=== PATIENT | male | born 1975 | race Caucasian/White ===

== ENCOUNTER 2017-05-29 17:23 | Emergency (ER) | payer OTHER ==
[~2017-05-29] VITALS: Ht 175.3 cm; Wt 81.6 kg
--- OUTSIDE RECORDS SUMMARY | 2017-05-29 18:14 | External Medical Summary Rpt | CCD ---
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 M46.46 Discitis, unspecified , lumbar region M54.17 Radiculopat hy, lumbosacral region M54.41 Lumbago with sciatica, right side M54.42 Lumbago with sciatica, left side N39.498 Other specified urinary incontinenc e R03.0 Elevated blood-press ure reading, without diagnosis of hypertensio n R10.12 Left upper quadrant pain R79.82 Elevated C-reactive protein (CRP) S39.92XS Unspecified injury of lower back, sequela Z74.09 Other reduced mobility Results Labs Lab Lab Date Result Refere Interp Status Commen Order Detail nces retati t Range on TOXICOLOGY SCREEN, URINE (04-06-2017 07:56) OPIATES 10-13-2 Negativ Negativ complet -URINE 017 e e ed SCREEN 07:56 COCAINE 10-13-2 Negativ Negativ complet -URINE 017 e e ed SCREEN 07:56 CANNABI 10-13-2 Negativ Negativ complet NOIDS-U 017 e e ed RINE 07:56 SCREEN BENZODI 10-13-2 Negativ Negativ complet AZEPINE 017 e ng/mL e ed S-URINE 07:56 SCREEN BARBITU 10-13-2 Negativ Negativ complet RATES-U 017 e ng/mL e ed RINE 07:56 SCREEN AMPHETA 10-13-2 Negativ Negativ complet MINES-U 017 e e ed RINE 07:56 [arb'U] SCRN URINALYSIS (04-06-2017 07:56) LEUKOCY -13-2 Negativ Negativ complet TE 017 e e ed ESTERAS 07:56 E-URINE UROBILI 04-06-2 Normal Normal complet NOGEN-U 017 {Ehrlic ed RINE 07:56 hU}/dL OCCULT -13-2 Negativ Negativ complet BLOOD-U 017 e e ed RINE 07:56 BILIRUB -13-2 Negativ Negativ complet IN-URIN 017 e mg/dL e ed E 07:56 KETONE- -13-2 Negativ Negativ complet URINE 017 e mg/dL e ed 07:56 GLUCOSE -13-2 Negativ Negativ complet -URINE 017 e mg/dL e ed 07:56 PROTEIN -13-2 Negativ Negativ complet -URINE 017 e mg/dL e ed 07:56 PH-URIN 13-2 7.0 5.0-9.0 complet E 017 ed 07:56 SPECIFI 13-2 1.008 1.005-1 complet C 017 [arb'U] .030 ed GRAVITY 07:56 URINE COLOR-U 04-06-2 Yellow complet RINE 017 ed 07:56 Drugs identified in Urine by Screen method (04-06-2017 07:56) Benzodi -13-2 Negativ Negativ complet azepine 017 e e ed s 07:56 [Presen ce] in Urine Opiates --2 Negativ Negativ complet 017 e e ed [Presen 07:56 ce] in Urine by Screen method Drugs identified in Urine by Screen method (04-06-2017 07:56) Ampheta 10-13-2 Negativ Negativ complet mines 017 e e ed [Presen 07:56 ce] in Urine by Screen method Barbitu 10-13-2 Negativ Negativ complet rates 017 e e ed [Presen 07:56 ce] in Urine Benzodi 10-13-2 PENDING Negativ complet azepine 017 e ed s 07:56 [Presen ce] in Urine Cannabi -13-2 Negativ Negativ complet noids 017 e e ed [Presen 07:56 ce] in Urine by Screen method Cocaine 10-13-2 Negativ Negativ complet 017 e e ed [Presen 07:56 ce] in Urine by Screen method Opiates 04-06-2 PENDING Negativ complet 017 e ed [Presen 07:56 ce] in Urine by Screen method Urinalysis macro (dipstick) panel in Urine (04-06-2017 07:56) Color 04-06- Yellow complet of 017 ed Urine 07:56 CLARITY Clear complet -URINE 017 ed 07:56 Specifi 1.008 1.005 complet c 017 [arb'U] [arb'U] ed gravity 07:56 - of 1.030 Urine [arb'U] by Automat ed test strip pH of 7.0 5.0 - complet Urine 017 9.0 ed by 07:56 Automat ed test strip Protein 04-06-2 Negativ Negativ complet 017 e e ed [Mass/v 07:56 olume] in unspeci fied time Urine Glucose 04-06-2 Negativ Negativ complet 017 e e ed [Mass/v 07:56 olume] in Urine by Automat ed test strip Ketones 04-06-2 Negativ Negativ complet 017 e e ed [Mass/v 07:56 olume] in Urine by Automat ed test strip Bilirub 04-06-2 Negativ Negativ complet in 017 e e ed [Mass/v 07:56 olume] in Urine by Automat ed test strip Hemoglo 04-06-2 Negativ Negativ complet bin 017 e e ed [Presen 07:56 ce] in Urine by Automat ed test strip NITRITE 04-06-2 Negativ Negativ complet -URINE 017 e e ed 07:56 Urobili 2 Normal Normal complet nogen 017 ed [Mass/v 07:56 olume] in Urine by Automat ed test strip Leukocy --2 Negativ Negativ complet te 017 e e ed esteras 07:56 e [Presen ce] in Urine by Automat ed test strip SOURCE- Urine complet URINE 017 Midstre ed 07:56 am REFLEX Macrosc complet MICROSC 017 opic ed OPIC? 07:56 only perform ed ERYTHROCYTE SEDIMENTATION RATE (04-06-2017 06:39) ERYTHRO 10-13-2 6 mm/Hr 0-15 complet CYTE 017 ed SEDIMEN 06:39 TATION RATE ETHANOL (04-06-2017 06:39) ETHYLAL --2 < 10 0-26 complet COHOL 017 mg/dL ed 06:39 CBC W/DIFF (04-06-2017 06:39) IMMATUR 10-13-2 0.03 <1 complet E 017 10*3/uL ed GRANULO 06:39 CYTE ABS BASOPHI 04-06-2 0.03 0.0-0.2 complet L ABS 017 10*3/uL ed 06:39 EOS-ABS 04-06-2 0.16 0.0-0.8 complet OLUTE 017 10*3/uL ed 06:39 MONOCYT 04-06-2 0.93 0.0-1.7 complet E 017 10*3/uL ed ABSOLUT 06:39 E LYMPHOC 04-06-2 2.84 0.7-5.5 complet YTE-ABS 017 10*3/uL ed OLUTE 06:39 NEUTROP 04-06-2 5.31 2.0-8.8 complet HIL ABS 017 10*3/uL ed 06:39 NUCLEAT 04-06-2 0 0 complet ED RBC 017 /100{WB ed % 06:39 C} IMMATUR 04-06-2 0.3 % 0 complet E 017 ed GRANULO 06:39 CYTE% BASO% 04-06-2 0.3 % 0-2 complet 017 ed 06:39 EOSINOP 04-06-2 1.7 % 0-7 complet HIL% 017 ed 06:39 MONOCYT 04-06-2 10.0 % 0-15 complet E % 017 ed 06:39 LYMPHOC 04-06-2 30.5 % 15-50 complet YTE % 017 ed 06:39 NEUTROP 04-06-2 57.2 % 45-80 complet HILS % 017 ed 06:39 MEAN 04-06-2 10.5 fL 6.7-10. complet PLATELE 017 8 ed T 06:39 VOLUME PLATELE 04-06-2 351 140-440 complet T COUNT 017 10*3/uL ed 06:39 RED --2 12.6 % 12.0-16 complet CELL 017 .8 ed DISTRIB 06:39 UTION WIDTH-C V MEAN 10-13-2 33.5 31.0-37 complet CORPUSC 017 g/dL .0 ed ULAR 06:39 HGB CONC MEAN 29.9 pg 26.0-34 complet CORPUSC 017 .0 ed ULAR 06:39 HEMOGLO BIN MEAN 89.2 fL 80.0-10 complet CORPUSC 017 0.0 ed ULAR 06:39 VOLUME HEMATOC 43.6 % 41.0-53 complet RIT 017 .0 ed 06:39 HEMOGLO 14.6 13.5-17 complet BIN 017 g/dL .5 ed 06:39 RED 4.89 4.5-5.9 complet BLOOD 017 10*6/uL ed COUNT 06:39 WHITE 9.30 4.5-11. complet BLOOD 017 10*3/uL 0 ed COUNT 06:39 Erythrocyte sedimentation rate (04-06-2017 06:39) Erythro 6 mm/Hr 0mm/H complet cyte 017 r - ed sedimen 06:39 15mm/ tation Hr rate CBC W Auto Differential panel in Blood (04-06-2017 06:39) Leukocy 9.30 4.510 complet cheli 017 10*3/uL *3/uL - ed [#/volu 06:39 me] in 11.01 Blood 0*3/uL by Automat ed count Erythro 4.89 4.510 complet cytes 017 10*6/uL *6/uL - ed [#/volu 06:39 me] in 5.910 Blood *6/uL by Automat ed count Hemoglo 14.6 13.5g complet bin 017 g/dL /dL - ed [Mass/v 06:39 17.5g olume] /dL in Blood Hematoc 43.6 % 41.0% complet rit 017 - ed [Volume 06:39 53.0% Fractio n] of Blood by Automat ed count Erythro 89.2 fL 80.0f complet cyte 017 L - ed mean 06:39 100.0 corpusc fL ular volume [Entiti c volume] by Automat ed count Erythro 29.9 pg 26.0p complet cyte 017 g - ed mean 06:39 34.0p corpusc g ular hemoglo bin [Entiti c mass] by Automat ed count Erythro 33.5 31.0g complet cyte 017 g/dL /dL - ed mean 06:39 37.0g corpusc /dL ular hemoglo bin concent ration [Mass/v olume] by Automat ed count Erythro 12.6 % 12.0% complet cyte 017 - ed distrib 06:39 16.8% ution width [Ratio] by Automat ed count Platele [phone] [id number] complet ts 017 10*3/uL *3/uL - ed [#/volu 06:39 me] in [id number] Blood *3/uL by Automat ed count Platele 10.5 fL 6.7fL complet t mean 017 - ed volume 06:39 10.8f [Entiti L c volume] in Blood by Automat ed count DIFF [facility]osp[facility] complet TYPE 017 l CBC ed 06:39 w/AutoD iff Neutrop 57.2 % 45% - complet hils/10 017 80% ed 0 06:39 leukocy cheli in Blood by Automat ed count Lymphoc 30.5 % 15% - complet ytes/10 017 50% ed 0 06:39 leukocy cheli in Blood by Automat ed count Monocyt 10.0 % 0% - complet es/100 017 15% ed leukocy 06:39 cheli in Blood by Automat ed count Eosinop 1.7 % 0% - complet hils/10 017 7% ed 0 06:39 leukocy cheli in Blood by Automat ed count Basophi 0.3 % 0% - complet ls/100 017 2% ed leukocy 06:39 cheli in Blood by Automat ed count IMMATUR 0.3 % 0 High complet E 017 ed GRANULO 06:39 CYTE% Nucleat 0 0 complet ed 017 /100{WB ed erythro 06:39 C} cytes/1 00 leukocy cheli [Ratio] in Blood by Automat ed count Neutrop 5.31 2.010 complet hils 017 10*3/uL *3/uL - ed [#/volu 06:39 me] in 8.810 Blood *3/uL by Automat ed count Lymphoc 2.84 0.710 complet ytes 017 10*3/uL *3/uL - ed [#/volu 06:39 me] in 5.510 Blood *3/uL by Automat ed count Monocyt 0.93 0.010 complet es 017 10*3/uL *3/uL - ed [#/volu 06:39 me] in 1.710 Blood *3/uL by Automat ed count Eosinop 0.16 0.010 complet hils 017 10*3/uL *3/uL - ed [#/volu 06:39 me] in 0.810 Blood *3/uL by Automat ed count Basophi 0.03 0.010 complet ls 017 10*3/uL *3/uL - ed [#/volu 06:39 me] in 0.210 Blood *3/uL by Automat ed count IMMATUR 0.03 <1 complet E 017 10*3/uL ed GRANULO 06:39 CYTE ABS ESR Bld Qn (03-08-2017 17:17) ESR Bld 25 0-15 complet Qn 017 mm/hr ed 17:17 CRP SerPl-mCnc (03-08-2017 17:17) CRP 0.70 0.00-1. complet SerPl-m 017 mg/dL 00 ed Cnc 17:17 CK SerPl-cCnc (03-08-2017 17:17) CK 73 U/L 26-174 complet SerPl-c 017 ed Cnc 17:17 Comp Metab 1998 Pnl SerPl (03-08-2017 17:17) Anion 13.0 3.0-11. complet Gap3 017 mmol/L 0 ed SerPl-s 17:17 Cnc BUN/Cre 13.3 7.0-25. complet at 017 0 ed SerPl 17:17 Albumin 1.2 1.5-2.5 complet /Glob 017 g/dL ed SerPl 17:17 Globuli 3.7 complet n Ur 017 gm/dL ed Elph-mC 17:17 nc GFR/BSA 147 >60 complet .pred 017 mL/min/ ed SerPl 17:17 1.73 MDRD-Ar VRat Bilirub 0.4 0.3-1.2 complet 017 mg/dL ed SerPl-m 17:17 Cnc ALP 120 U/L 25-100 complet SerPl-c 017 ed Cnc 17:17 AST 118 U/L 0-33 complet SerPl-c 017 ed Cnc 17:17 ALT 127 U/L 7-40 complet SerPl w 017 ed 17:17 P-5'-P- cCnc Albumin 4.30 3.20-4. complet 017 g/dL 80 ed SerPl-m 17:17 Cnc Prot 8.0 5.7-8.2 complet SerPl-m 017 g/dL ed Cnc 17:17 Calcium 9.0 8.7-10. complet 017 mg/dL 4 ed XXX-sCn 17:17 c CO2 25.0 20.0-31 complet SerPl-s 017 mmol/L .0 ed Cnc 17:17 Chlorid 103 99-109 complet e 017 mmol/L ed SerPl-s 17:17 Cnc Potassi 3.9 3.5-5.5 complet um 017 mmol/L ed Bld-sCn 17:17 c Sodium 141 132-146 complet Bld-sCn 017 mmol/L ed c 17:17 Creat 0.60 0.60-1. complet Bld-mCn 017 mg/dL 30 ed c 17:17 BUN 8 mg/dL 9-23 complet Bld-mCn 017 ed c 17:17 Glucose 92 70-100 complet 017 mg/dL ed Bld-mCn 17:17 c CBC W Diff pnl,unspecified Bld (03-08-2017 17:17) Imm 09-14-2 0.02 0.00-0. complet Granulo 017 10*3/mm 03 ed cytes # 17:17 3 Bld Basophi 03-08-2 0.03 0.00-0. complet ls # 017 10*3/mm 20 ed Bld 17:17 3 Auto Eosinop 03-08-2 0.04 0.00-0. complet hil # 017 10*3/mm 30 ed Bld 17:17 3 Auto Monocyt 03-08-2 0.79 0.00-1. complet es # 017 10*3/mm 00 ed Bld 17:17 3 Auto Lymphoc 03-08-2 2.03 0.60-4. complet ytes # 017 10*3/mm 80 ed Bld 17:17 3 Auto Neutrop 03-08-2 5.72 1.50-8. complet hils # 017 10*3/mm 30 ed Bld 17:17 3 Auto Imm 03-08-2 0.2 % 0.0-0.6 complet Granulo 017 ed cytes/l 17:17 euk NFr Bld Basophi 03-08-2 0.3 % 0.0-1.0 complet ls/leuk 017 ed NFr 17:17 Bld Auto Eosinop 03-08-2 0.5 % 0.0-3.0 complet hil/priscilla 017 ed k NFr 17:17 Bld Auto Monocyt 03-08-2 9.2 % 0.0-12. complet es/leuk 017 0 ed NFr 17:17 Bld Auto Lymphoc 03-08-2 23.5 % 24.0-44 complet ytes/le 017 .0 ed uk NFr 17:17 Bld Auto Neutrop 03-08-2 66.3 % 41.0-71 complet hils/le 017 .0 ed uk NFr 17:17 Bld Auto Platele 03-08-2 305 150-450 complet t # Bld 017 10*3/mm ed Auto 17:17 3 PMV Bld 03-08-2 9.6 fL 6.0-12. complet Auto 017 0 ed 17:17 RDW RBC 03-08-2 38.9 fl 37.0-54 complet Auto 017 .0 ed 17:17 RDW RBC 03-08-2 12.2 % 11.3-14 complet 017 .5 ed Auto-Rt 17:17 o MCHC 34.0 32.0-36 complet RBC 017 g/dL .0 ed Auto-mC 17:17 nc MCH RBC 29.8 pg 27.0-31 complet Qn 017 .0 ed Auto 17:17 MCV RBC 87.7 fL 80.0-99 complet Auto 017 .0 ed 17:17 Hct VFr 44.4 % 38.9-50 complet Bld 017 .9 ed Auto 17:17 Hgb 15.1 13.1-17 complet Bld-mCn 017 g/dL .5 ed c 17:17 RBC # 5.06 4.20-5. complet Bld 017 10*6/mm 76 ed Auto 17:17 3 WBC 8.63 3.50-10 complet nRBC 017 10*3/mm .80 ed cor # 17:17 3 Bld CRP SerPl-mCnc (03-02-2017 16:57) CRP 0.91 0.00-1. complet SerPl-m 017 mg/dL 00 ed Cnc 16:57 CK SerPl-cCnc (03-02-2017 16:57) CK 62 U/L 26-174 complet SerPl-c 017 ed Cnc 16:57 Comp Metab 1998 Pnl SerPl (03-02-2017 16:57) Anion 8.0 3.0-11. complet Gap3 017 mmol/L 0 ed SerPl-s 16:57 Cnc BUN/Cre 15.0 7.0-25. complet at 017 0 ed SerPl 16:57 Albumin 1.2 1.5-2.5 complet /Glob 017 g/dL ed SerPl 16:57 Globuli 3.3 complet n Ur 017 gm/dL ed Elph-mC 16:57 nc GFR/BSA 147 >60 complet .pred 017 mL/min/ ed SerPl 16:57 1.73 MDRD-Ar VRat Bilirub 0.3 0.3-1.2 complet 017 mg/dL ed SerPl-m 16:57 Cnc ALP 106 U/L 25-100 complet SerPl-c 017 ed Cnc 16:57 AST 08 100 U/L 0-33 complet SerPl-c 017 ed Cnc 16:57 ALT 104 U/L 7-40 complet SerPl w 017 ed 16:57 P-5'-P- cCnc Albumin 4.10 3.20-4. complet 017 g/dL 80 ed SerPl-m 16:57 Cnc Prot 7.4 5.7-8.2 complet SerPl-m 017 g/dL ed Cnc 16:57 Calcium 08 9.4 8.7-10. complet 017 mg/dL 4 ed XXX-sCn 16:57 c CO2 28.0 20.0-31 complet SerPl-s 017 mmol/L .0 ed Cnc 16:57 Chlorid 101 99-109 complet e 017 mmol/L ed SerPl-s 16:57 Cnc Potassi 3.9 3.5-5.5 complet um 017 mmol/L ed Bld-sCn 16:57 c Sodium 137 132-146 complet Bld-sCn 017 mmol/L ed c 16:57 Creat 0.60 0.60-1. complet Bld-mCn 017 mg/dL 30 ed c 16:57 BUN 9 mg/dL 9-23 complet Bld-mCn 017 ed c 16:57 Glucose 111 70-100 complet 017 mg/dL ed Bld-mCn 16:57 c CBC (hemogram) Bld Auto (03-02-2017 16:57) Platele 355 150-450 complet t # Bld 017 10*3/mm ed Auto 16:57 3 PMV Bld 9.0 fL 6.0-12. complet Auto 017 0 ed 16:57 RDW RBC 37.5 fl 37.0-54 complet Auto 017 .0 ed 16:57 RDW RBC 11.7 % 11.3-14 complet 017 .5 ed Auto-Rt 16:57 o WBC 09-08-2 7.47 3.50-10 complet nRBC 017 10*3/mm .80 ed cor # 16:57 3 Bld MCHC 03-02-2 34.2 32.0-36 complet RBC 017 g/dL .0 ed Auto-mC 16:57 nc MCH RBC 03-02-2 30.1 pg 27.0-31 complet Qn 017 .0 ed Auto 16:57 MCV RBC 03-02-2 88.0 fL 80.0-99 complet Auto 017 .0 ed 16:57 Hct VFr 03-02-2 42.4 % 38.9-50 complet Bld 017 .9 ed Auto 16:57 Hgb 08-2 14.5 13.1-17 complet Bld-mCn 017 g/dL .5 ed c 16:57 RBC # 08-2 4.82 4.20-5. complet Bld 017 10*6/mm 76 ed Auto 16:57 3 CBC (hemogram) Bld Auto (02-23-2017 15:44) WBC 02-23-2 12.14 3.50-10 complet nRBC 017 10*3/mm .80 ed cor # 15:44 3 Bld Platele 405 150-450 complet t # Bld 017 10*3/mm ed Auto 15:44 3 PMV Bld 9.4 fL 6.0-12. complet Auto 017 0 ed 15:44 RDW RBC 02-23- 39.3 fl 37.0-54 complet Auto 017 .0 ed 15:44 RDW RBC 02-23-2 12.2 % 11.3-14 complet 017 .5 ed Auto-Rt 15:44 o MCHC 02-23-2 34.0 32.0-36 complet RBC 017 g/dL .0 ed Auto-mC 15:44 nc MCH RBC 02-23-2 30.3 pg 27.0-31 complet Qn 017 .0 ed Auto 15:44 MCV RBC 02-23-2 89.2 fL 80.0-99 complet Auto 017 .0 ed 15:44 Hct VFr 02-23-2 44.7 % 38.9-50 complet Bld 017 .9 ed Auto 15:44 Hgb 02-23-2 15.2 13.1-17 complet Bld-mCn 017 g/dL .5 ed c 15:44 RBC # 5.01 4.20-5. complet Bld 017 10*6/mm 76 ed Auto 15:44 3 CRP SerPl-mCnc (02-23-2017 15:43) CRP 2.32 0.00-1. complet SerPl-m 017 mg/dL 00 ed Cnc 15:43 CK SerPl-cCnc (02-23-2017 15:43) CK 41 U/L 26-174 complet SerPl-c 017 ed Cnc 15:43 Comp Metab 1998 Pnl SerPl (02-23-2017 15:43) Anion 4.0 3.0-11. complet Gap3 017 mmol/L 0 ed SerPl-s 15:43 Cnc BUN/Cre 21.7 7.0-25. complet at 017 0 ed SerPl 15:43 Albumin 1.2 1.5-2.5 complet /Glob 017 g/dL ed SerPl 15:43 Globuli 3.5 complet n Ur 017 gm/dL ed Elph-mC 15:43 nc GFR/BSA 147 >60 complet .pred 017 mL/min/ ed SerPl 15:43 1.73 MDRD-Ar VRat Bilirub 0.3 0.3-1.2 complet 017 mg/dL ed SerPl-m 15:43 Cnc ALP 102 U/L 25-100 complet SerPl-c 017 ed Cnc 15:43 AST 96 U/L 0-33 complet SerPl-c 017 ed Cnc 15:43 ALT 163 U/L 7-40 complet SerPl w 017 ed 15:43 P-5'-P- cCnc Albumin 4.30 3.20-4. complet 017 g/dL 80 ed SerPl-m 15:43 Cnc Prot 7.8 5.7-8.2 complet SerPl-m 017 g/dL ed Cnc 15:43 Calcium 9.5 8.7-10. complet 017 mg/dL 4 ed XXX-sCn 15:43 c CO2 25.0 20.0-31 complet SerPl-s 017 mmol/L .0 ed Cnc 15:43 Chlorid 102 99-109 complet e 017 mmol/L ed SerPl-s 15:43 Cnc Potassi 4.6 3.5-5.5 complet um 017 mmol/L ed Bld-sCn 15:43 c Sodium 131 132-146 complet Bld-sCn 017 mmol/L ed c 15:43 Creat 0.60 0.60-1. complet Bld-mCn 017 mg/dL 30 ed c 15:43 BUN 13 9-23 complet Bld-mCn 017 mg/dL ed c 15:43 Glucose 99 70-100 complet 017 mg/dL ed Bld-mCn 15:43 c Comp Metab 1998 Pnl SerPl (02-22-2017 05:42) Anion 6.0 3.0-11. complet Gap3 017 mmol/L 0 ed SerPl-s 05:42 Cnc BUN/Cre 24.3 7.0-25. complet at 017 0 ed SerPl 05:42 Albumin 1.1 1.5-2.5 complet /Glob 017 g/dL ed SerPl 05:42 Globuli 3.4 complet n Ur 017 gm/dL ed Elph-mC 05:42 nc GFR/BSA 123 >60 complet .pred 017 mL/min/ ed SerPl 05:42 1.73 MDRD-Ar VRat Bilirub 0.4 0.3-1.2 complet 017 mg/dL ed SerPl-m 05:42 Cnc ALP 86 U/L 25-100 complet SerPl-c 017 ed Cnc 05:42 AST 71 U/L 0-33 complet SerPl-c 017 ed Cnc 05:42 ALT 142 U/L 7-40 complet SerPl w 017 ed 05:42 P-5'-P- cCnc Albumin 3.80 3.20-4. complet 017 g/dL 80 ed SerPl-m 05:42 Cnc Prot 7.2 5.7-8.2 complet SerPl-m 017 g/dL ed Cnc 05:42 Calcium 9.2 8.7-10. complet 017 mg/dL 4 ed XXX-sCn 05:42 c CO2 29.0 20.0-31 complet SerPl-s 017 mmol/L .0 ed Cnc 05:42 Chlorid 95 99-109 complet e 017 mmol/L ed SerPl-s 05:42 Cnc Potassi 4.0 3.5-5.5 complet um 017 mmol/L ed Bld-sCn 05:42 c Sodium 130 132-146 complet Bld-sCn 017 mmol/L ed c 05:42 Creat 0.70 0.60-1. complet Bld-mCn 017 mg/dL 30 ed c 05:42 BUN 17 9-23 complet Bld-mCn 017 mg/dL ed c 05:42 Glucose 95 70-100 complet 017 mg/dL ed Bld-mCn 05:42 c Ammonia Plas-sCnc (02-21-2017 15:22) Ammonia 35 19-60 complet 017 umol/L ed Bld-sCn 15:22 c Bas Metab 2000 Pnl SerPl (02-21-2017 05:33) Anion 9.0 3.0-11. complet Gap3 017 mmol/L 0 ed SerPl-s 05:33 Cnc BUN/Cre 21.4 7.0-25. complet at 017 0 ed SerPl 05:33 GFR/BSA 123 >60 complet .pred 017 mL/min/ ed SerPl 05:33 1.73 MDRD-Ar VRat Calcium 9.6 8.7-10. complet 017 mg/dL 4 ed XXX-sCn 05:33 c CO2 25.0 20.0-31 complet SerPl-s 017 mmol/L .0 ed Cnc 05:33 Chlorid 99 99-109 complet e 017 mmol/L ed SerPl-s 05:33 Cnc Potassi 4.3 3.5-5.5 complet um 017 mmol/L ed Bld-sCn 05:33 c Sodium 133 132-146 complet Bld-sCn 017 mmol/L ed c 05:33 Creat 0.70 0.60-1. complet Bld-mCn 017 mg/dL 30 ed c 05:33 BUN 15 9-23 complet Bld-mCn 017 mg/dL ed c 05:33 Glucose 150 70-100 complet 017 mg/dL ed Bld-mCn 05:33 c CK SerPl-cCnc (02-21-2017 05:33) CK 11 U/L 26-174 complet SerPl-c 017 ed Cnc 05:33 CK SerPl-cCnc (02-20-2017 04:51) CK 31 U/L 26-174 complet SerPl-c 017 ed Cnc 04:51 Comp Metab 1998 Pnl SerPl (02-20-2017 04:51) Anion 7.0 3.0-11. complet Gap3 017 mmol/L 0 ed SerPl-s 04:51 Cnc BUN/Cre 20.0 7.0-25. complet at 017 0 ed SerPl 04:51 Albumin 1.1 1.5-2.5 complet /Glob 017 g/dL ed SerPl 04:51 Globuli 3.6 complet n Ur 017 gm/dL ed Elph-mC 04:51 nc GFR/BSA 147 >60 complet .pred 017 mL/min/ ed SerPl 04:51 1.73 MDRD-Ar VRat Bilirub 0.4 0.3-1.2 complet 017 mg/dL ed SerPl-m 04:51 Cnc ALP 92 U/L 25-100 complet SerPl-c 017 ed Cnc 04:51 AST 99 U/L 0-33 complet SerPl-c 017 ed Cnc 04:51 ALT 185 U/L 7-40 complet SerPl w 017 ed 04:51 P-5'-P- cCnc Albumin 3.90 3.20-4. complet 017 g/dL 80 ed SerPl-m 04:51 Cnc Prot 02-20-2 7.5 5.7-8.2 complet SerPl-m 017 g/dL ed Cnc 04:51 Calcium 02-20-2 9.7 8.7-10. complet 017 mg/dL 4 ed XXX-sCn 04:51 c CO2 02-20-2 28.0 20.0-31 complet SerPl-s 017 mmol/L .0 ed Cnc 04:51 Chlorid 02-20-2 95 99-109 complet e 017 mmol/L ed SerPl-s 04:51 Cnc Potassi 02-20-2 4.9 3.5-5.5 complet um 017 mmol/L ed Bld-sCn 04:51 c Sodium 02-20-2 130 132-146 complet Bld-sCn 017 mmol/L ed c 04:51 Creat 02-20-2 0.60 0.60-1. complet Bld-mCn 017 mg/dL 30 ed c 04:51 BUN 02-20-2 12 9-23 complet Bld-mCn 017 mg/dL ed c 04:51 Glucose 02-20-2 98 70-100 complet 017 mg/dL ed Bld-mCn 04:51 c CRP SerPl-mCnc (02-20-2017 04:51) CRP 02-20-2 2.08 0.00-1. complet SerPl-m 017 mg/dL 00 ed Cnc 04:51 CBC W Diff pnl,unspecified Bld (02-20-2017 04:51) Imm 02-20-2 0.07 0.00-0. complet Granulo 017 10*3/mm 03 ed cytes # 04:51 3 Bld Basophi 02-20-2 0.02 0.00-0. complet ls # 017 10*3/mm 20 ed Bld 04:51 3 Auto Eosinop 29-2 0.11 0.00-0. complet hil # 017 10*3/mm 30 ed Bld 04:51 3 Auto Monocyt 29-2 0.92 0.00-1. complet es # 017 10*3/mm 00 ed Bld 04:51 3 Auto Lymphoc 29-2 1.47 0.60-4. complet ytes # 017 10*3/mm 80 ed Bld 04:51 3 Auto Neutrop 02-20-2 6.71 1.50-8. complet hils # 017 10*3/mm 30 ed Bld 04:51 3 Auto Imm 02-20-2 0.8 % 0.0-0.6 complet Granulo 017 ed cytes/l 04:51 euk NFr Bld Basophi 2 0.2 % 0.0-1.0 complet ls/leuk 017 ed NFr 04:51 Bld Auto Eosinop 2 1.2 % 0.0-3.0 complet hil/priscilla 017 ed k NFr 04:51 Bld Auto Monocyt 02-20-2 9.9 % 0.0-12. complet es/leuk 017 0 ed NFr 04:51 Bld Auto Lymphoc 2 15.8 % 24.0-44 complet ytes/le 017 .0 ed uk NFr 04:51 Bld Auto Neutrop 72.1 % 41.0-71 complet hils/le 017 .0 ed uk NFr 04:51 Bld Auto Platele 298 150-450 complet t # Bld 017 10*3/mm ed Auto 04:51 3 PMV Bld 9.4 fL 6.0-12. complet Auto 017 0 ed 04:51 RDW RBC 02-20-2 37.9 fl 37.0-54 complet Auto 017 .0 ed 04:51 RDW RBC 02-20-2 11.8 % 11.3-14 complet 017 .5 ed Auto-Rt 04:51 o MCHC 2 33.6 32.0-36 complet RBC 017 g/dL .0 ed Auto-mC 04:51 nc MCH RBC 02-20-2 29.5 pg 27.0-31 complet Qn 017 .0 ed Auto 04:51 MCV RBC 02-20-2 88.0 fL 80.0-99 complet Auto 017 .0 ed 04:51 Hct VFr 02-20-2 42.6 % 38.9-50 complet Bld 017 .9 ed Auto 04:51 Hgb 02-20-2 14.3 13.1-17 complet Bld-mCn 017 g/dL .5 ed c 04:51 RBC # 29-2 4.84 4.20-5. complet Bld 017 10*6/mm 76 ed Auto 04:51 3 WBC 9.30 3.50-10 complet nRBC 017 10*3/mm .80 ed cor # 04:51 3 Bld MRSA XXX Ql Cult (02-17-2017 22:00) MRSA No complet XXX Ql 017 Methici ed Cult 22:00 llin Resista nt Staphyl ococcus aureus isolate d Vancomycin Trough SerPl-mCnc (02-17-2017 20:37) Vancomy 11.60 10.00-2 complet dalton 017 mcg/mL 0.00 ed Trough 20:37 SerPl-m Cnc Procalcitonin SerPl-nc (02-17-2017 05:25) Procalc 0.15 complet itonin 017 ng/mL ed SerPl-m 05:25 Cnc CRP SerPl-mCnc (02-17-2017 05:25) CRP 2.04 0.00-1. complet SerPl-m 017 mg/dL 00 ed Cnc 05:25 Comp Metab 1998 Pnl SerPl (02-17-2017 05:25) Anion 6.0 3.0-11. complet Gap3 017 mmol/L 0 ed SerPl-s 05:25 Cnc BUN/Cre 12.0 7.0-25. complet at 017 0 ed SerPl 05:25 Albumin 1.0 1.5-2.5 complet /Glob 017 g/dL ed SerPl 05:25 Globuli 3.6 complet n Ur 017 gm/dL ed Elph-mC 05:25 nc GFR/BSA > 150 >60 complet .pred 017 mL/min/ ed SerPl 05:25 1.73 MDRD-Ar VRat Bilirub 0.4 0.3-1.2 complet 017 mg/dL ed SerPl-m 05:25 Cnc ALP 88 U/L 25-100 complet SerPl-c 017 ed Cnc 05:25 AST 199 U/L 0-33 complet SerPl-c 017 ed Cnc 05:25 ALT 08-26-2 202 U/L 7-40 complet SerPl w 017 ed 05:25 P-5'-P- cCnc Albumin 3.50 3.20-4. complet 017 g/dL 80 ed SerPl-m 05:25 Cnc Prot 02-17- 7.1 5.7-8.2 complet SerPl-m 017 g/dL ed Cnc 05:25 Calcium 9.3 8.7-10. complet 017 mg/dL 4 ed XXX-sCn 05:25 c CO2 26.0 20.0-31 complet SerPl-s 017 mmol/L .0 ed Cnc 05:25 Chlorid 104 99-109 complet e 017 mmol/L ed SerPl-s 05:25 Cnc Potassi 3.4 3.5-5.5 complet um 017 mmol/L ed Bld-sCn 05:25 c Sodium 136 132-146 complet Bld-sCn 017 mmol/L ed c 05:25 Creat 0.50 0.60-1. complet Bld-mCn 017 mg/dL 30 ed c 05:25 BUN 6 mg/dL 9-23 complet Bld-mCn 017 ed c 05:25 Glucose 96 70-100 complet 017 mg/dL ed Bld-mCn 05:25 c CBC W Diff pnl,unspecified Bld (02-17-2017 05:25) RDW RBC 38.6 fl 37.0-54 complet Auto 017 .0 ed 05:25 RDW RBC 11.9 % 11.3-14 complet 017 .5 ed Auto-Rt 05:25 o MCHC 33.3 32.0-36 complet RBC 017 g/dL .0 ed Auto-mC 05:25 nc MCH RBC 29.6 pg 27.0-31 complet Qn 017 .0 ed Auto 05:25 MCV RBC 89.0 fL 80.0-99 complet Auto 017 .0 ed 05:25 Hct VFr 42.1 % 38.9-50 complet Bld 017 .9 ed Auto 05:25 Hgb 08-26-2 14.0 13.1-17 complet Bld-mCn 017 g/dL .5 ed c 05:25 Imm 0826-2 0.03 0.00-0. complet Granulo 017 10*3/mm 03 ed cytes # 05:25 3 Bld Basophi 0826-2 0.02 0.00-0. complet ls # 017 10*3/mm 20 ed Bld 05:25 3 Auto Eosinop 0826-2 0.04 0.00-0. complet hil # 017 10*3/mm 30 ed Bld 05:25 3 Auto Monocyt 0826-2 0.73 0.00-1. complet es # 017 10*3/mm 00 ed Bld 05:25 3 Auto Lymphoc 02-17-2 1.95 0.60-4. complet ytes # 017 10*3/mm 80 ed Bld 05:25 3 Auto Neutrop 0826-2 5.14 1.50-8. complet hils # 017 10*3/mm 30 ed Bld 05:25 3 Auto Imm 02-17-2 0.4 % 0.0-0.6 complet Granulo 017 ed cytes/l 05:25 euk NFr Bld Basophi 02-17-2 0.3 % 0.0-1.0 complet ls/leuk 017 ed NFr 05:25 Bld Auto Eosinop 02-17-2 0.5 % 0.0-3.0 complet hil/priscilla 017 ed k NFr 05:25 Bld Auto Monocyt 26-2 9.2 % 0.0-12. complet es/leuk 017 0 ed NFr 05:25 Bld Auto Lymphoc 26-2 24.7 % 24.0-44 complet ytes/le 017 .0 ed uk NFr 05:25 Bld Auto Neutrop 0826-2 64.9 % 41.0-71 complet hils/le 017 .0 ed uk NFr 05:25 Bld Auto RBC # 08-26-2 4.73 4.20-5. complet Bld 017 10*6/mm 76 ed Auto 05:25 3 Platele 02-17-2 300 150-450 complet t # Bld 017 10*3/mm ed Auto 05:25 3 WBC -26-2 7.91 3.50-10 complet nRBC 017 10*3/mm .80 ed cor # 05:25 3 Bld PMV Bld 9.9 fL 6.0-12. complet Auto 017 0 ed 05:25 Lactate SerPl-sCnc (02-17-2017 05:25) D-Lacta 0.7 0.5-2.0 complet te 017 mmol/L ed SerPl-s 05:25 Cnc Cryptoc Ag Ser Ql (02-16-2017 13:40) Cryptoc [id number] Negativ complet Ag CSF 017 09 e ed Ql 13:40 Negativ e SCT Vancomycin Trough SerPl-mCnc (02-16-2017 08:25) Vancomy 7.10 10.00-2 complet dalton 017 mcg/mL 0.00 ed Trough 08:25 SerPl-m Cnc Bas Metab 2000 Pnl SerPl (02-15-2017 06:34) Anion 6.0 3.0-11. complet Gap3 017 mmol/L 0 ed SerPl-s 06:34 Cnc BUN/Cre 11.7 7.0-25. complet at 017 0 ed SerPl 06:34 GFR/BSA 147 >60 complet .pred 017 mL/min/ ed SerPl 06:34 1.73 MDRD-Ar VRat Calcium 9.6 8.7-10. complet 017 mg/dL 4 ed XXX-sCn 06:34 c CO2 26.0 20.0-31 complet SerPl-s 017 mmol/L .0 ed Cnc 06:34 Chlorid 101 99-109 complet e 017 mmol/L ed SerPl-s 06:34 Cnc Potassi 2 4.0 3.5-5.5 complet um 017 mmol/L ed Bld-sCn 06:34 c Sodium 133 132-146 complet Bld-sCn 017 mmol/L ed c 06:34 Creat 0.60 0.60-1. complet Bld-mCn 017 mg/dL 30 ed c 06:34 BUN 7 mg/dL 9-23 complet Bld-mCn 017 ed c 06:34 Glucose 24-2 122 70-100 complet 017 mg/dL ed Bld-mCn 06:34 c CBC W Diff pnl,unspecified Bld (02-15-2017 06:34) Imm 08-24-2 0.04 0.00-0. complet Granulo 017 10*3/mm 03 ed cytes # 06:34 3 Bld Basophi 24-2 0.01 0.00-0. complet ls # 017 10*3/mm 20 ed Bld 06:34 3 Auto Eosinop 24-2 0.00 0.00-0. complet hil # 017 10*3/mm 30 ed Bld 06:34 3 Auto Monocyt 24-2 0.67 0.00-1. complet es # 017 10*3/mm 00 ed Bld 06:34 3 Auto Lymphoc 24-2 0.95 0.60-4. complet ytes # 017 10*3/mm 80 ed Bld 06:34 3 Auto Neutrop 24-2 7.16 1.50-8. complet hils # 017 10*3/mm 30 ed Bld 06:34 3 Auto Imm 24-2 0.5 % 0.0-0.6 complet Granulo 017 ed cytes/l 06:34 euk NFr Bld Basophi 02-15-2 0.1 % 0.0-1.0 complet ls/leuk 017 ed NFr 06:34 Bld Auto Eosinop 24-2 0.0 % 0.0-3.0 complet hil/priscilla 017 ed k NFr 06:34 Bld Auto Monocyt 24-2 7.6 % 0.0-12. complet es/leuk 017 0 ed NFr 06:34 Bld Auto Lymphoc 24-2 10.8 % 24.0-44 complet ytes/le 017 .0 ed uk NFr 06:34 Bld Auto Neutrop 24-2 81.0 % 41.0-71 complet hils/le 017 .0 ed uk NFr 06:34 Bld Auto Platele 24-2 292 150-450 complet t # Bld 017 10*3/mm ed Auto 06:34 3 PMV Bld 02-15-2 10.2 fL 6.0-12. complet Auto 017 0 ed 06:34 RDW RBC 08-24-2 38.9 fl 37.0-54 complet Auto 017 .0 ed 06:34 RDW RBC 08-24-2 12.0 % 11.3-14 complet 017 .5 ed Auto-Rt 06:34 o MCHC 0824-2 33.6 32.0-36 complet RBC 017 g/dL .0 ed Auto-mC 06:34 nc MCH RBC 0824-2 29.8 pg 27.0-31 complet Qn 017 .0 ed Auto 06:34 MCV RBC 0824-2 88.7 fL 80.0-99 complet Auto 017 .0 ed 06:34 Hct VFr 24-2 41.7 % 38.9-50 complet Bld 017 .9 ed Auto 06:34 Hgb 08-24-2 14.0 13.1-17 complet Bld-mCn 017 g/dL .5 ed c 06:34 RBC # 24-2 4.70 4.20-5. complet Bld 017 10*6/mm 76 ed Auto 06:34 3 WBC -24-2 8.83 3.50-10 complet nRBC 017 10*3/mm .80 ed cor # 06:34 3 Bld CBC W Diff pnl,unspecified Bld (02-14-2017 22:04) WBC -23-2 10.03 3.50-10 complet nRBC 017 10*3/mm .80 ed cor # 22:04 3 Bld RBC # 23-2 4.51 4.20-5. complet Bld 017 10*6/mm 76 ed Auto 22:04 3 Hgb 23-2 13.5 13.1-17 complet Bld-mCn 017 g/dL .5 ed c 22:04 Hct VFr 23-2 40.3 % 38.9-50 complet Bld 017 .9 ed Auto 22:04 MCV RBC 08-23-2 89.4 fL 80.0-99 complet Auto 017 .0 ed 22:04 MCH RBC 08-23-2 29.9 pg 27.0-31 complet Qn 017 .0 ed Auto 22:04 MCHC 08-23-2 33.5 32.0-36 complet RBC 017 g/dL .0 ed Auto-mC 22:04 nc RDW RBC 02-14-2 12.0 % 11.3-14 complet 017 .5 ed Auto-Rt 22:04 o RDW RBC 02-14-2 39.2 fl 37.0-54 complet Auto 017 .0 ed 22:04 PMV Bld 02-14-2 9.9 fL 6.0-12. complet Auto 017 0 ed 22:04 Platele 2 257 150-450 complet t # Bld 017 10*3/mm ed Auto 22:04 3 Neutrop 02-14-2 71.5 % 41.0-71 complet hils/le 017 .0 ed uk NFr 22:04 Bld Auto Lymphoc 02-14-2 15.2 % 24.0-44 complet ytes/le 017 .0 ed uk NFr 22:04 Bld Auto Monocyt 02-14-2 12.7 % 0.0-12. complet es/leuk 017 0 ed NFr 22:04 Bld Auto Eosinop 23-2 0.1 % 0.0-3.0 complet hil/priscilla 017 ed k NFr 22:04 Bld Auto Basophi 02-14-2 0.1 % 0.0-1.0 complet ls/leuk 017 ed NFr 22:04 Bld Auto Imm 23-2 0.4 % 0.0-0.6 complet Granulo 017 ed cytes/l 22:04 euk NFr Bld Neutrop 02-14-2 7.18 1.50-8. complet hils # 017 10*3/mm 30 ed Bld 22:04 3 Auto Lymphoc 23-2 1.52 0.60-4. complet ytes # 017 10*3/mm 80 ed Bld 22:04 3 Auto Monocyt 23-2 1.27 0.00-1. complet es # 017 10*3/mm 00 ed Bld 22:04 3 Auto Eosinop -23-2 0.01 0.00-0. complet hil # 017 10*3/mm 30 ed Bld 22:04 3 Auto Basophi 0823-2 0.01 0.00-0. complet ls # 017 10*3/mm 20 ed Bld 22:04 3 Auto Imm 23-2 0.04 0.00-0. complet Granulo 017 10*3/mm 03 ed cytes # 22:04 3 Bld Lactate SerPl-sCnc (02-14-2017 22:04) D-Lacta 0.8 0.5-2.0 complet te 017 mmol/L ed SerPl-s 22:04 Cnc Comp Metab 1998 Pnl SerPl (02-14-2017 22:04) Glucose 112 70-100 complet 017 mg/dL ed Bld-mCn 22:04 c BUN 6 mg/dL 9-23 complet Bld-mCn 017 ed c 22:04 Creat 0.50 0.60-1. complet Bld-mCn 017 mg/dL 30 ed c 22:04 Sodium 133 132-146 complet Bld-sCn 017 mmol/L ed c 22:04 Potassi 3.8 3.5-5.5 complet um 017 mmol/L ed Bld-sCn 22:04 c Chlorid 103 99-109 complet e 017 mmol/L ed SerPl-s 22:04 Cnc CO2 26.0 20.0-31 complet SerPl-s 017 mmol/L .0 ed Cnc 22:04 Calcium 8.6 8.7-10. complet 017 mg/dL 4 ed XXX-sCn 22:04 c Prot 7.1 5.7-8.2 complet SerPl-m 017 g/dL ed Cnc 22:04 Albumin 3.80 3.20-4. complet 017 g/dL 80 ed SerPl-m 22:04 Cnc ALT 115 U/L 7-40 complet SerPl w 017 ed 22:04 P-5'-P- cCnc AST 66 U/L 0-33 complet SerPl-c 017 ed Cnc 22:04 ALP 86 U/L 25-100 complet SerPl-c 017 ed Cnc 22:04 Bilirub 0.8 0.3-1.2 complet 017 mg/dL ed SerPl-m 22:04 Cnc GFR/BSA > 150 >60 complet .pred 017 mL/min/ ed SerPl 22:04 1.73 MDRD-Ar VRat Globuli 3.3 complet n Ur 017 gm/dL ed Elph-mC 22:04 nc Albumin 1.2 1.5-2.5 complet /Glob 017 g/dL ed SerPl 22:04 BUN/Cre 12.0 7.0-25. complet at 017 0 ed SerPl 22:04 Anion 4.0 3.0-11. complet Gap3 017 mmol/L 0 ed SerPl-s 22:04 Cnc Procalcitonin SerPl-mCnc (02-14-2017 22:04) Procalc 02-14- 0.16 complet itonin 017 ng/mL ed SerPl-m 22:04 Cnc Bacteria Bld Cult (02-14-2017 10:13) Bacteri No complet a XXX 017 growth ed Aerobe 10:13 at 5 Cult days Troponin T SerPl Ql (02-14-2017 08:06) Troponi 0.01 0.00-0. complet n I 017 ng/mL 07 ed SerPl-m 08:06 Cnc UA Dipstick Pnl Ur (02-14-2017 08:02) Color Dark Yellow, complet Ur 017 Yellow Straw ed 08:02 Clarity [id number] Clear complet Ur 017 02 ed 08:02 Turbid SCT pH Ur 5.5 5.0-8.0 complet Strip.a 017 ed uto 08:02 Sp Gr 1.024 1.001-1 complet Ur 017 .030 ed Strip 08:02 Glucose [id number] Negativ complet Ur 017 09 e ed Strip-m 08:02 Negativ Cnc e SCT Ketones [id number] Negativ complet Ur Ql 017 06 e ed Strip 08:02 Trace SCT Bilirub [id number] Negativ complet Ur Ql 017 09 e ed Strip 08:02 Negativ e SCT Hgb Ur [id number] Negativ complet Ql 017 00 e ed Strip.a 08:02 Moderat uto e number SCT Prot Ur [id number] Negativ complet Ql 017 06 e ed Strip 08:02 Trace SCT Leukocy [id number] Negativ complet te 017 09 e ed esteras 08:02 Negativ e Ur Ql e SCT Strip.a uto Nitrite [id number] Negativ complet Ur Ql 017 09 e ed Strip 08:02 Negativ e SCT Urobili 1.0 0.2 - complet nogen 017 E.U./dL 1.0 ed Ur Ql 08:02 E.U./dL Strip UA Microscopic Pnl # Ur Auto (02-14-2017 08:02) RBC # 02-14-2 3-6 None complet Ur 017 /HPF Seen, ed 08:02 0-2 WBC Ur 0-2 None complet Ql Auto 017 /HPF Seen ed 08:02 Bacteri [id number] None complet a Ur Ql 017 00 Not Seen, ed Auto 08:02 detecte Trace d SCT /HPF Squamou 0-2 None complet s 017 /HPF Seen, ed #/area 08:02 0-2 UrnS HPF Hyaline 0-6 0-6 complet Casts 017 /LPF ed Ur Ql 08:02 Auto Ref lab Automat complet test 017 ed ed method 08:02 Microsc opy Drugs Ur Scn (02-14-2017 08:02) Cannabi [id number] Negativ complet noids 017 09 e ed SerPl 08:02 Negativ Ql e SCT PCP Ur [id number] Negativ complet Ql Scn 017 09 e ed 08:02 Negativ e SCT Cocaine 2536836 Negativ complet Ur Ql 017 09 e ed 08:02 Negativ e SCT Ampheta 4592106 Negativ complet mines 017 09 e ed Ur Ql 08:02 Negativ e SCT Opiates 9519436 Negativ complet Ur Ql 017 4 e ed 08:02 Positiv e SCT Amphet+ [id number] Negativ complet Methamp 017 09 e ed het Ur 08:02 Negativ Ql e SCT Benzodi 7642404 Negativ complet az Ur 017 09 e ed Ql Scn 08:02 Negativ e SCT Tricycl 02-14-2 [id number] Negativ complet ics Ur 017 09 e ed Ql Scn 08:02 Negativ e SCT Methado 02-14-2 1058256 Negativ complet ne Ur 017 09 e ed Ql Scn 08:02 Negativ e SCT Barbitu 02-14-2 [id number] Negativ complet rates 017 09 e ed Ur Ql 08:02 Negativ Scn e SCT Oxycodo 02-14-2 [id number] Negativ complet ne Ur 017 09 e ed Ql Scn 08:02 Negativ e SCT Propoxy 02-14-2 [id number] Negativ complet ph Ur 017 09 e ed Ql 08:02 Negativ e SCT Bupreno 02-14-2 [id number] Negativ complet rphine 017 09 e ed SerPl-m 08:02 Negativ Cnc e SCT CBC W Diff pnl,unspecified Bld (02-14-2017 08:01) Eosinop 23-2 0.01 0.00-0. complet hil # 017 10*3/mm 30 ed Bld 08:01 3 Auto Basophi 23-2 0.02 0.00-0. complet ls # 017 10*3/mm 20 ed Bld 08:01 3 Auto Imm 23-2 0.04 0.00-0. complet Granulo 017 10*3/mm 03 ed cytes # 08:01 3 Bld WBC 23-2 9.90 3.50-10 complet nRBC 017 10*3/mm .80 ed cor # 08:01 3 Bld RBC # 0823-2 4.95 4.20-5. complet Bld 017 10*6/mm 76 ed Auto 08:01 3 Hgb 23-2 14.7 13.1-17 complet Bld-mCn 017 g/dL .5 ed c 08:01 Hct VFr 23-2 43.3 % 38.9-50 complet Bld 017 .9 ed Auto 08:01 MCV RBC 23-2 87.5 fL 80.0-99 complet Auto 017 .0 ed 08:01 MCH RBC 23-2 29.7 pg 27.0-31 complet Qn 017 .0 ed Auto 08:01 MCHC 0823-2 33.9 32.0-36 complet RBC 017 g/dL .0 ed Auto-mC 08:01 nc RDW RBC 12.2 % 11.3-14 complet 017 .5 ed Auto-Rt 08:01 o RDW RBC 39.2 fl 37.0-54 complet Auto 017 .0 ed 08:01 PMV Bld 9.5 fL 6.0-12. complet Auto 017 0 ed 08:01 Platele 291 150-450 complet t # Bld 017 10*3/mm ed Auto 08:01 3 Neutrop 76.5 % 41.0-71 complet hils/le 017 .0 ed uk NFr 08:01 Bld Auto Lymphoc 12.7 % 24.0-44 complet ytes/le 017 .0 ed uk NFr 08:01 Bld Auto Monocyt 10.1 % 0.0-12. complet es/leuk 017 0 ed NFr 08:01 Bld Auto Eosinop 0.1 % 0.0-3.0 complet hil/priscilla 017 ed k NFr 08:01 Bld Auto Basophi 0.2 % 0.0-1.0 complet ls/leuk 017 ed NFr 08:01 Bld Auto Imm 0.4 % 0.0-0.6 complet Granulo 017 ed cytes/l 08:01 euk NFr Bld Neutrop 7.57 1.50-8. complet hils # 017 10*3/mm 30 ed Bld 08:01 3 Auto Lymphoc 1.26 0.60-4. complet ytes # 017 10*3/mm 80 ed Bld 08:01 3 Auto Monocyt 2 1.00 0.00-1. complet es # 017 10*3/mm 00 ed Bld 08:01 3 Auto Mg Ionized SerPl-mCnc (02-14-2017 08:01) Magnesi 2.3 1.3-2.7 complet um 017 mg/dL ed SerPl-m 08:01 Cnc Comp Metab 1998 Pnl SerPl (02-14-2017 08:01) Glucose 156 70-100 complet 017 mg/dL ed Bld-mCn 08:01 c BUN 8 mg/dL 9-23 complet Bld-mCn 017 ed c 08:01 Creat 0.70 0.60-1. complet Bld-mCn 017 mg/dL 30 ed c 08:01 Sodium 136 132-146 complet Bld-sCn 017 mmol/L ed c 08:01 Potassi 4.2 3.5-5.5 complet um 017 mmol/L ed Bld-sCn 08:01 c Chlorid 109 99-109 complet e 017 mmol/L ed SerPl-s 08:01 Cnc CO2 22.0 20.0-31 complet SerPl-s 017 mmol/L .0 ed Cnc 08:01 Calcium 9.1 8.7-10. complet 017 mg/dL 4 ed XXX-sCn 08:01 c Prot 7.4 5.7-8.2 complet SerPl-m 017 g/dL ed Cnc 08:01 Albumin 4.10 3.20-4. complet 017 g/dL 80 ed SerPl-m 08:01 Cnc ALT 155 U/L 7-40 complet SerPl w 017 ed 08:01 P-5'-P- cCnc AST 98 U/L 0-33 complet SerPl-c 017 ed Cnc 08:01 ALP 99 U/L 25-100 complet SerPl-c 017 ed Cnc 08:01 Bilirub 0.5 0.3-1.2 complet 017 mg/dL ed SerPl-m 08:01 Cnc GFR/BSA 123 >60 complet .pred 017 mL/min/ ed SerPl 08:01 1.73 MDRD-Ar VRat Globuli 3.3 complet n Ur 017 gm/dL ed Elph-mC 08:01 nc Albumin 1.2 1.5-2.5 complet /Glob 017 g/dL ed SerPl 08:01 BUN/Cre 08-23-2 11.4 7.0-25. complet at 017 0 ed SerPl 08:01 Anion 5.0 3.0-11. complet Gap3 017 mmol/L 0 ed SerPl-s 08:01 Cnc CRP SerPl-mCnc (02-14-2017 08:01) CRP 1.51 0.00-1. complet SerPl-m 017 mg/dL 00 ed Cnc 08:01 ESR Bld Qn (02-14-2017 08:01) ESR Bld 20 0-15 complet Qn 017 mm/hr ed 08:01 LPL SerPl-cCnc (02-14-2017 08:01) Lipase 73 U/L 6-51 complet SerPl-c 017 ed Cnc 08:01 Ethanol Bld-mCnc (02-14-2017 08:01) Ethanol 11 0-10 complet 017 mg/dL ed Bld-mCn 08:01 c Hgb A1c Bld (02-14-2017 08:01) Hgb A1c 5.50 % 4.80-5. complet MFr 017 60 ed Bld 08:01
--- OUTSIDE RECORDS SUMMARY | 2017-05-29 18:14 | External Medical Summary Rpt | CCD ---
Author Author , FREDDY HAYES Address Unknown Phone [email or web address] Purpose Continuity of Care Document - 02-14-2017 [...] [Ratio] by Automat ed count Platele [phone] complet ts 017 10*3/uL *3/uL - ed [#/volu 06:39 me] in [id number] Blood *3/uL by Automat ed count Platele [...] Cryptoc Ag Ser Ql (02-16-2017 13:40) Cryptoc [id number] Negativ complet Ag CSF 017 09 e [...] Ur 017 Yellow Straw ed 08:02 Clarity [id number] Clear complet Ur 017 02 ed 08:02 Turbid SCT pH Ur 5.5 5.0-8.0 complet Strip.a 017 ed uto 08:02 Sp Gr 1.024 1.001-1 complet Ur 017 .030 ed Strip 08:02 Glucose 0978146 Negativ complet Ur 017 09 e ed Strip-m 08:02 Negativ Cnc e SCT Ketones 8073467 Negativ complet Ur Ql 017 06 e ed Strip 08:02 Trace SCT Bilirub 2255770 Negativ complet Ur Ql 017 09 e ed Strip 08:02 Negativ e SCT Hgb Ur 7290665 Negativ complet Ql 017 00 e ed Strip.a 08:02 Moderat uto e number SCT Prot Ur [id number] Negativ complet Ql 017 06 e ed Strip 08:02 Trace SCT Leukocy 4293847 Negativ complet te 017 09 e ed esteras 08:02 Negativ e Ur Ql e SCT Strip.a uto Nitrite 5261706 Negativ complet Ur Ql 017 09 e ed Strip 08:02 Negativ e SCT Urobili 1.0 0.2 - complet nogen 017 E.U./dL 1.0 ed Ur Ql 08:02 E.U./dL Strip UA Microscopic Pnl # Ur Auto (02-14-2017 08:02) RBC # 02-14-2 3-6 None complet Ur 017 /HPF Seen, ed 08:02 0-2 WBC Ur 0-2 None complet Ql Auto 017 /HPF Seen ed 08:02 Bacteri [id number] None complet a Ur Ql 017 00 Not Seen, ed Auto 08:02 detecte Trace d SCT /HPF Squamou 0-2 None complet s 017 /HPF Seen, ed #/area 08:02 0-2 UrnS HPF Hyaline 0-6 0-6 complet Casts 017 /LPF ed Ur Ql 08:02 Auto Ref lab Automat complet test 017 ed ed method 08:02 Microsc opy Drugs Ur Scn (02-14-2017 08:02) Cannabi [id number] Negativ complet noids 017 09 e ed SerPl 08:02 Negativ Ql e SCT PCP Ur 3670895 Negativ complet Ql Scn 017 09 e ed 08:02 Negativ e SCT Cocaine 7989015 Negativ complet Ur Ql 017 09 e ed 08:02 Negativ e SCT Ampheta 8115158 Negativ complet mines 017 09 e ed Ur Ql 08:02 Negativ e SCT Opiates 0896955 Negativ complet Ur Ql 017 4 e ed 08:02 Positiv e SCT Amphet+ 7494531 Negativ complet Methamp 017 09 e ed het Ur 08:02 Negativ Ql e SCT Benzodi 5118504 Negativ complet az Ur 017 09 e ed Ql Scn 08:02 Negativ e SCT Tricycl 02-14-2 7738887 Negativ complet ics Ur 017 09 e ed Ql Scn 08:02 Negativ e SCT Methado 02-14-2 4189588 Negativ complet ne Ur 017 09 e ed Ql Scn 08:02 Negativ e SCT Barbitu 02-14-2 7668547 Negativ complet rates 017 09 e ed Ur Ql 08:02 Negativ Scn e SCT Oxycodo 02-14-2 1118642 Negativ complet ne Ur 017 09 e ed Ql Scn 08:02 Negativ e SCT Propoxy 02-14-2 8043658 Negativ complet ph Ur 017 09 e ed Ql 08:02 Negativ e SCT Bupreno 02-14-2 5161396 Negativ complet rphine 017 09 e ed [...]
--- OUTSIDE RECORDS SUMMARY | 2017-05-29 18:15 | External Medical Summary Rpt ---
Author Author FREDDY Greene, FLAVIACIRO [employer] Organization [employer] Address Unknown Phone Unavailable Results Drugs identified in Urine by Screen method Observa Value Referen Units Interpr Notes Date tion ce etation Range Ampheta Negativ Negativ [arb'U] No Ampheta Apr 06 mines e e informa mine 2016 [Presen tion in cutoff 7:56 AM ce] in source = 500 Urine data ng/ml.U by rine Screen drug method screen for medical purpose s only. Barbitu Negativ Negativ ng/mL No Barbitu Apr 06 rates e e informa rate 2016 [Presen tion in cutoff 7:56 AM ce] in source = 200 Urine data ng/ml.U rine drug screen for medical purpose s only. Benzodi Negativ Negativ ng/mL No Benzodi Apr 06 azepine e e informa azepine 2016 s tion in cutoff 7:56 AM [Presen source = 200 ce] in data ng/ml.U Urine rine drug screen for medical purpose s only. Cannabi Negativ Negativ No No THC Apr 06 noids e e informa informa cutoff 2016 [Presen tion in tion in = 50 7:56 AM ce] in source source ng/ml.U Urine data data rine by drug Screen screen method for medical purpose s only. Cocaine Negativ Negativ No No Cocaine Apr 06 e e informa informa cutoff 2016 [Presen tion in tion in = 150 7:56 AM ce] in source source ng/ml.U Urine data data rine by drug Screen screen method for medical purpose s only. Opiates Negativ Negativ No No Opiates Apr 06 e e informa informa cutoff 2016 [Presen tion in tion in = 2000 7:56 AM ce] in source source Urine data data ng/ml.U by rine Screen drug method screen for medical purpose s only. Drugs identified in Urine by Screen method Observa Value Referen Units Interpr Notes Date tion ce etation Range Ampheta Negativ Negativ [arb'U] No Ampheta Apr 06 mines e e informa mine 2016 [Presen tion in cutoff 7:56 AM ce] in source = 500 Urine data ng/ml.U by rine Screen drug method screen for medical purpose s only. Barbitu Negativ Negativ ng/mL No Barbitu Apr 06 rates e e informa rate 2016 [Presen tion in cutoff 7:56 AM ce] in source = 200 Urine data ng/ml.U rine drug screen for medical purpose s only. Benzodi PENDING Negativ ng/mL No No Apr 06 azepine e informa informa 2017 s tion in tion in 7:56 AM [Presen source source ce] in data data Urine Cannabi Negativ Negativ No No THC Apr 06 noids e e informa informa cutoff 2017 [Presen tion in tion in = 50 7:56 AM ce] in source source ng/ml.U Urine data data rine by drug Screen screen method for medical purpose s only. Cocaine Negativ Negativ No No Cocaine Apr 06 e e informa informa cutoff 2016 [Presen tion in tion in = 150 7:56 AM ce] in source source ng/ml.U Urine data data rine by drug Screen screen method for medical purpose s only. Opiates PENDING Negativ No No No Apr 06 e informa informa informa 2016 [Presen tion in tion in tion in 7:56 AM ce] in source source source Urine data data data by Screen method Urinalysis macro (dipstick) panel in Urine Observa Value Referen Units Interpr Notes Date tion ce etation Range Color Yellow No No No No Apr 06 of informa informa informa informa 2017 Urine tion in tion in tion in tion in 7:56 AM source source source source data data data data CLARITY Clear No No No No Apr 06 -URINE informa informa informa informa 2017 tion in tion in tion in tion in 7:56 AM source source source source data data data data Specifi 1.008 1.005 - [arb'U] No No Apr 06 c 1.030 informa informa 2017 gravity tion in tion in 7:56 AM of source source Urine data data by Automat ed test strip pH of 7.0 5.0 - No No No Apr 06 Urine 9.0 informa informa informa 2016 by tion in tion in tion in 7:56 AM Automat source source source ed test data data data strip Protein Negativ Negativ mg/dL No No Apr 06 e e informa informa 2016 [Mass/v tion in tion in 7:56 AM olume] source source in data data unspeci fied time Urine Glucose Negativ Negativ mg/dL No No Apr 06 e e informa informa 2016 [Mass/v tion in tion in 7:56 AM olume] source source in data data Urine by Automat ed test strip Ketones Negativ Negativ mg/dL No No Apr 06 e e informa informa 2016 [Mass/v tion in tion in 7:56 AM olume] source source in data data Urine by Automat ed test strip Bilirub Negativ Negativ mg/dL No No Apr 06 in e e informa informa 2016 [Mass/v tion in tion in 7:56 AM olume] source source in data data Urine by Automat ed test strip Hemoglo Negativ Negativ No No No Apr 06 bin e e informa informa informa 2016 [Presen tion in tion in in 7:56 AM ce] in source source source Urine data data data by Automat ed test strip NITRITE Negativ Negativ No No No Apr 06 -URINE e e informa informa informa 2016 tion in tion in in 7:56 AM source source source data data data Urobili Normal Normal {Ehrlic No No Apr 06 nogen hU}/dL informa informa 2016 [Mass/v tion in tion in 7:56 AM olume] source source in data data Urine by Automat ed test strip Leukocy Negativ Negativ No No No Apr 06 te e e informa informa informa 2017 esteras tion in tion in tion in 7:56 AM e source source source [Presen data data data ce] in Urine by Automat ed test strip SOURCE- Urine No No No No Apr 06 URINE Midstre informa informa informa informa 2016 am tion in tion in tion in tion in 7:56 AM source source source source data data data data REFLEX Macrosc No No No No Apr 06 MICROSC opic informa informa informa informa 2017 [facility]IC? only tion in tion in tion in tion in 7:56 AM perform source source source source ed data data data data Erythrocyte sedimentation rate Observa Value Referen Units Interpr Notes Date tion ce etation Range Erythro 6 0 - 15 mm/Hr No No Apr 06 cyte informa informa 2017 sedimen tion in tion in 6:39 AM tation source source rate data data CBC W Auto Differential panel in Blood Observa Value Referen Units Interpr Notes Date tion ce etation Range Leukocy 9.30 4.5 - 10*3/uL No No Apr 06 cheli 11.0 informa informa 2016 [#/volu tion in tion in 6:39 AM me] in source source Blood data data by Automat ed count Erythro 4.89 4.5 - 10*6/uL No No Apr 06 cytes 5.9 informa informa 2016 [#/volu tion in tion in 6:39 AM me] in source source Blood data data by Automat ed count Hemoglo 14.6 13.5 - g/dL No No Apr 06 bin 17.5 informa informa 2016 [Mass/v tion in tion in 6:39 AM olume] source source in data data Blood Hematoc 43.6 41.0 - % No No Apr 06 rit 53.0 informa informa 2016 [Volume tion in tion in 6:39 AM source source Fractio data data n] of Blood by Automat ed count Erythro 89.2 80.0 - fL No No Apr 06 cyte 100.0 informa informa 2016 mean tion in tion in 6:39 AM corpusc source source ular data data volume [Entiti c volume] by Automat ed count Erythro 29.9 26.0 - pg No No Apr 06 cyte 34.0 informa informa 2016 mean tion in tion in 6:39 AM corpusc source source ular data data hemoglo bin [Entiti c mass] by Automat ed count Erythro 33.5 31.0 - g/dL No No Apr 06 cyte 37.0 informa informa 2017 mean tion in tion in 6:39 AM corpusc source source ular data data hemoglo bin concent ration [Mass/v olume] by Automat ed count Erythro 12.6 12.0 - % No No Apr 06 cyte 16.8 informa informa 2017 distrib tion in tion in 6:39 AM ution source source width data data [Ratio] by Automat ed count Platele 351 140 - 10*3/uL No No Apr 06 ts 440 informa informa 2017 [#/volu tion in tion in 6:39 AM me] in source source Blood data data by Automat ed count Platele 10.5 6.7 - fL No No Apr 06 t mean 10.8 informa informa 2017 volume tion in tion in 6:39 AM [Entiti source source c data data volume] in Blood by Automat ed count DIFF Hospita No [arb'U] No No Apr 06 TYPE l CBC informa informa informa 2017 w/AutoD tion in tion in tion in 6:39 AM iff source source source data data data Neutrop 57.2 45 - 80 % No No Apr 06 hils/ informa informa 2016 0 tion in tion in 6:39 AM leukocy source source cheli in data data Blood by Automat ed count Lymphoc 30.5 15 - 50 % No No Apr 06 ytes/10 informa informa 2017 0 tion in tion in 6:39 AM leukocy source source cheli in data data Blood by Automat ed count Monocyt 10.0 0 - 15 % No No Apr 06 es/100 informa informa 2017 leukocy tion in tion in 6:39 AM cheli in source source Blood data data by Automat ed count Eosinop 1.7 0 - 7 % No No Apr 06 hils/10 informa informa 2017 0 tion in tion in 6:39 AM leukocy source source cheli in data data Blood by Automat ed count Basophi 0.3 0 - 2 % No No Apr 06 ls/100 informa informa 2017 leukocy tion in tion in 6:39 AM cheli in source source Blood data data by Automat ed count IMMATUR 0.3 0 % High No Apr 06 E informa 2017 GRANULO tion in 6:39 AM CYTE% source data Nucleat 0 0 /100{WB No No Apr 06 ed C} informa informa 2016 erythro tion in tion in 6:39 AM cytes/1 source source 00 data data leukocy cheli [Ratio] in Blood by Automat ed count Neutrop 5.31 2.0 - 10*3/uL No No Apr 06 hils 8.8 informa informa 2016 [#/volu tion in tion in 6:39 AM me] in source source Blood data data by Automat ed count Lymphoc 2.84 0.7 - 10*3/uL No No Apr 06 ytes 5.5 informa informa 2016 [#/volu tion in tion in 6:39 AM me] in source source Blood data data by Automat ed count Monocyt 0.93 0.0 - 10*3/uL No No Apr 06 es 1.7 informa informa 2016 [#/volu tion in tion in 6:39 AM me] in source source Blood data data by Automat ed count Eosinop 0.16 0.0 - 10*3/uL No Apr 06 hils 0.8 informa informa 2016 [#/volu tion in tion in 6:39 AM me] in source source Blood data data by Automat ed count Basophi 0.03 0.0 - 10*3/uL No No Apr 06 ls 0.2 informa informa 2016 [#/volu tion in tion in 6:39 AM me] in source source Blood data data by Automat ed count IMMATUR 0.03 <1 10*3/uL No No Apr 06 E informa informa 2016 GRANULO tion in tion in 6:39 AM CYTE source source ABS data data
--- OUTSIDE RECORDS SUMMARY | 2017-05-29 18:15 | External Medical Summary Rpt | CCD ---
Demographics Preferred Language Maltese Marital Status Unknown Spiritism Affiliation Unknown Race Unknown Ethnic Group Unknown Author Author , FREDDY HAYES Address Unknown Phone Immunization No patient found.
--- OUTSIDE RECORDS SUMMARY | 2017-05-29 18:15 | External Medical Summary Rpt | CCD ---
Author Author [employer] Address Unknown Phone Unavailable Purpose Continuity of Care Document - through 2016
--- OUTSIDE RECORDS SUMMARY | 2017-05-29 18:15 | External Medical Summary Rpt ---
[...] leukocy tion in tion in 6:39 AM cehli in source source Blood data data by [...]
--- OUTSIDE RECORDS SUMMARY | 2017-05-29 18:15 | External Medical Summary Rpt | CCD ---
Demographics Preferred Language Egyptian Marital Status Unknown Orthodox Affiliation Unknown Race Unknown Ethnic Group Unknown Author Author , FREDDY HAYES Address Unknown Phone Immunization No patient found.
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
[2017-05-29 18:54] VITALS: BP 158/101
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
== END 2017-05-29 18:54 | disposition home or self-care (01) ==
LOC: ER 17:23
DX: M25.531 Pain in right wrist (principal); F41.8 Other specified anxiety disorders; F17.210 Nicotine dependence, cigarettes, uncomplicated; F10.10 Alcohol abuse, uncomplicated; V47.6XXA Car passenger injured in collision with fixed or stationary object in traffic accident, initial encounter; Y92.488 Other paved roadways as the place of occurrence of the external cause